=== PATIENT | female | born 1965 | race Two or more races ===

== ENCOUNTER 2019-11-26 09:09 | Emergency (ER) | payer OTHER ==
[2019-11-26 09:18] VITALS: BP 154/81
[2019-11-26] MEDS ORDERED: LIDOCAINE 1% 2 ML VIAL ONE (09:28)
[2019-11-26] MEDS ORDERED: TETANUS/DIPHTHERIA/PERTUSSIS 0.5 ML SYRINGE IM ONE (09:44)
--- NOTE | 2019-11-26 09:47 | ED Physician Documentation ---
History of Present Illness - Stated complaint Stated Complaint: L HAND LAC - Chief complaint Chief Complaint: Laceration - History obtained from History obtained from: Patient (Patient presented to the emergency room with laceration to the left 4 th Finger. She was pushing garbage down to compacted it and was cut by an open can. There is a laceration of about 1 and half centimeter. Patient is on Coumadin. Last INR check was between 2-3. It was wrap just prior to arrival. There is no active bleeding at the moment. No other injury. Tetanus shot is unknown duration.) - History of Present Illness Timing: Prior to arrival Pain level max: 5 Pain level now: 5 Review of Systems Ten Systems: 10 systems reviewed and negative Constitutional: reports: Reviewed and negative Eyes: reports: Reviewed and negative Ears: reports: Reviewed and negative Nose: reports: Reviewed and negative Throat: reports: Reviewed and negative Cardiac: reports: Reviewed and negative Respiratory: reports: Reviewed and negative GI: reports: Reviewed and negative : reports: Reviewed and negative Skin: reports: Reviewed and negative Musculoskeletal: reports: Other (Left finger laceration) Neurologic: reports: Reviewed and negative Psychiatric: reports: Reviewed and negative Endocrine: reports: Reviewed and negative Immunocompromised: reports: Reviewed and negative PD PAST MEDICAL HISTORY - Past Medical History Past Medical History: Yes Cardiovascular: Other (On Coumadin) - Allergies Allergies/Adverse Reactions: Allergies Allergy/AdvReac Type Severity Reaction Status Date / Time No Known Drug Allergies Allergy Verified 11/26/19 09:13 PD ED PE NORMAL - Vitals Vital signs reviewed: Yes - General General: Alert and oriented X 3, No acute distress - HEENT HEENT: PERRL - Neck Neck: Supple, no meningeal sign - Cardiac Cardiac: RRR, No murmur - Respiratory Respiratory: Clear bilaterally - Abdomen Abdomen: Normal bowel sounds, Soft, Non tender, Non distended - Derm Derm: Warm and dry - Extremities Extremities: Other (1 and half centimeter laceration to the ventral surface of left #4 finger, proximal phalangeal joint) - Neuro Neuro: Alert and oriented X 3 - Psych Psych: Normal mood, Normal affect Results - Vitals Vitals: Vital Signs - 24 hr 11/26/19 09:13 Temperature 36.6 C Heart Rate 75 Respiratory 18 Rate Blood Pressure 154/81 H O2 Saturation 96 Oxygen O2 Source Room air Procedures - Laceration (location) Finger Wound type: Linear Neurovascular status: Sensory intact, Motor intact, Vascular intact Anesthesia: Lidocaine 1% (2 mL) Wound Preparation: Hibiclens Deep layer closure: Vicryl Skin layer closure: Nylon (3 simple sutures) Other: Patient tolerated well Complexity: Simple PD MEDICAL DECISION MAKING - ED course Complexity details: d/w patient ED course: Laceration was irrigated thoroughly after 2 mL of lidocaine 1% without epinephrine infiltrated. Patient tolerated suturing well. She is asked to continue take care of the wound for the next 7 to 10 days and follow with primary care doctor for suture removal. Departure - Departure Disposition: 01 Home, Self Care Clinical Impression: Laceration Condition: Stable Instructions: ED Laceration Hand Follow-Up: Alessandro Murphy MD [Primary Care Provider] - Comments: Please follow-up with your primary care doctor or a local care facility for suture removal in 7 days. Discharge Date/Time: 11/26/19 10:14
== END 2019-11-26 10:14 | disposition home or self-care (01) ==
LOC: ED 09:09
DX: S61.215A Laceration without foreign body of left ring finger without damage to nail, initial encounter (principal); W26.8XXA Contact with other sharp object(s), not elsewhere classified, initial encounter; Y93.E9 Activity, other interior property and clothing maintenance
CPT/HCPCS: 12001; 99283; 99284